=== PATIENT | female | born 1945 | race Caucasian/White ===

== ENCOUNTER 2016-10-22 06:18 | Day surgery (SDC) | payer OTHER ==
--- NOTE | ~2016-10-22 | OP ---
Record Of Operation [facility] [address] [place]. [address] NAME: ESTEE TIPTON : 47 STATUS : [facility]#: [id number] AGE: 70 ADM/REG DATE : 10/22/16 MR#: [id number] REPORT SERV DATE: 10/22/16 DICTATED BY: JAE PARISH DATE: 10/22/16 REPORT STATUS : Draft TRANSCRIBED BY: MODL DATE: 10/22/16 DATE OF PROCEDURE: 10/22/2016 PREOPERATIVE DIAGNOSIS: Right inferior turbinate ulcer, nonhealing. POSTOPERATIVE DIAGNOSIS: Right inferior turbinate ulcer, nonhealing. PROCEDURE PERFORMED: Nasal endoscopy with biopsy of right inferior turbinate. SURGEON: Jae Parish M.D. DATABASE TESTER: None. ANESTHESIA: General. COMPLICATIONS: None. CONDITION: Stable to recovery. 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 She is on methotrexate. Risks, benefits, and alternatives to biopsy of this ulcer were explained and she agreed. PROCEDURE IN DETAIL: The patient was identified in preoperative holding, taken back to the operating room, and placed supine on the operating room table. General anesthesia was established. She was prepped and draped in a standard fashion for the operation. A time- out was called, and the patient and procedure were confirmed. 1 mL of 1% lidocaine with 1:100,000 epinephrine was injected into the anterior inferior turbinate. A 0-degree endoscopic visualization revealed a small healing ulcer of the right inferior turbinate. A 15 blade was used to do a shave biopsy of this ulceration with a 15 blade. Following this, the needle tip cautery was used for hemostasis and along with Surgicel packing. The patient tolerated the procedure well. There were no complications. The specimen was sent for permanent pathology analysis due to its size. The lesion was approximately 5 mm to 6 mm in diameter. The patient was awakened and taken to recovery in stable condition. PH/MODL Jae Parish M.D. / [id number] CC: Jae Parish M.D. Record Of Operation [address] [address] NAME: ESTEE TIPTON : 47 STATUS : [facility] PAT#: [id number] AGE: 70 ADM/REG DATE : 10/22/16 MR#: [id number] REPORT SERV DATE: 10/22/16 DICTATED BY: JAE PARISH DATE: 10/22/16 REPORT STATUS : Draft TRANSCRIBED BY: MODL DATE: 10/22/16 Virginia Loomis M.D.
[~2016-10-22 06:18] MED LIST: 8 HOUR650 MG PO; CETIRIZINE HCL5 MG PO; FOLIC ACID PO; RED YEAS1 PO; SYN075 PO; TREXALL10 MG PO; VITAMIN D1000 UNI1 PO; VITC500 PO
[2016-10-22 06:53] LABS: HEMATOCRIT 38.1 % (36.0-48.0); HEMOGLOBIN 12.7 g/dL (12.0-16.0)
[2016-10-22 06:58] LABS: PARTIAL THROMBO TIME 28.6 SEC (22.5-37.2)
== END 2016-10-22 11:09 | disposition home or self-care (01) ==
LOC: SDC 06:18
PROVIDERS: Specialist
PROC: 09BL8ZZ Excision of Nasal Turbinate, Via Natural or Artificial Opening Endoscopic (ICD-10-PCS; principal; 2016-10-22 07:45)
DX: J34.89 Other specified disorders of nose and nasal sinuses (principal); R04.0 Epistaxis; E03.9 Hypothyroidism, unspecified; Z88.2 Allergy status to sulfonamides; Z90.89 Acquired absence of other organs; Z90.710 Acquired absence of both cervix and uterus; Z98.890 Other specified postprocedural states
CPT/HCPCS: 85014; 85018; 85730; 88304; 93005; A9270-GY; J0690; J2250; J2405; J3010